=== PATIENT | female | born 1980 | race Caucasian/White ===

== ENCOUNTER 2021-03-19 23:12 | Emergency (ER) | payer OTHER ==
[2021-03-19 23:35] VITALS: TEMP 97.7; BMI 27.7
[2021-03-19] MEDS ORDERED: ACETAMINOPHEN 1000 MG/100 ML BAG IVPB ONE (23:56)
[2021-03-19] MEDS ORDERED: SODIUM CHLORIDE 0.9% 1000 ML INFUS.BAG IV ONE (23:56)
[2021-03-19] MEDS ORDERED: ACETAMINOPHEN INJECTION 100 ML IVPB ONE (23:58)
[2021-03-20 00:38] LABS: BASO % 0.4 % (0-2.0); EOS % 2.3 % (0-4.5); HEMATOCRIT 37.4 % (32.4-45.2); HEMOGLOBIN 12.3 GM/dL (10.7-15.3); LYMPH % 34.7 % (8-40); MCH 28.9 pg (25.7-33.7); MCHC 32.8 g/dl (32.0-36.0); MEAN PLT VOLUME 7.7 fl (7.5-11.1); MONO % 5.9 % (3.8-10.2); NEUT % 56.7 % (42.8-82.8); PLATELET COUNT 361 10^3/uL (134-434); RBC 4.25 M/mm3 (3.60-5.2); RDW 13.9 % (11.6-15.6)
[2021-03-20 01:00] LABS: CALCIUM 8.7 mg/dL (8.5-10.1)
[2021-03-20 01:01] LABS: ALBUMIN 3.8 g/dl (3.4-5.0)
[2021-03-20 01:04] LABS: CREATININE 0.7 mg/dL (0.55-1.3)
[2021-03-20 01:05] LABS: BILIRUBIN,TOTAL 0.6 mg/dL (0.2-1)
[2021-03-20 01:06] LABS: TOT PROT 7.2 g/dl (6.4-8.2)
[2021-03-20] MEDS ORDERED: RHO(D) IMMUNE GLOBULIN 1,500 UNIT DISP.SYRIN IM ONE (01:44)
[2021-03-20] MEDS ORDERED: IBUPROFEN 600 MG TABLET (FP) PO ONE ×2 (04:37)
[2021-03-20 04:45] VITALS: BP 122/81; PULSE 77
== END 2021-03-20 04:57 | disposition home or self-care (01) ==
LOC: JER 23:12
PROC: 3E0333Z Introduction of Anti-inflammatory into Peripheral Vein, Percutaneous Approach (ICD-10-PCS; principal; 2021-03-19)
PROC: 3E033GC Introduction of Other Therapeutic Substance into Peripheral Vein, Percutaneous Approach (ICD-10-PCS; 2021-03-19)
PROC: 3E033GC Introduction of Other Therapeutic Substance into Peripheral Vein, Percutaneous Approach (ICD-10-PCS; 2021-03-19)
PROC: 3E0234Z Introduction of Serum, Toxoid and Vaccine into Muscle, Percutaneous Approach (ICD-10-PCS; 2021-03-19)
DX: O03.39 Incomplete spontaneous abortion with other complications (principal); Z3A.01 Less than 8 weeks gestation of pregnancy
CPT/HCPCS: 76817-TC; 80053; 84702; 85025; 86850; 86870; 86900; 86901; 86902; 86999; 99284-25; J0131; J1561

== ENCOUNTER 2023-07-05 00:17 | Emergency (ER) | payer OTHER ==
[2023-07-05 00:29] VITALS: TEMP 98; BMI 28.0
[2023-07-05] MEDS ORDERED: ACETAMINOPHEN INJECTION 100 ML IVPB ONE (01:31)
[2023-07-05] MEDS ORDERED: FAMOTIDINE 10 MG/ML VIAL IVPB ONE (01:31)
[2023-07-05] MEDS: ACETAMINOPHEN 1000 MG/100 ML BAG IVPB ONE (01:35)
[2023-07-05] MEDS: FAMOTIDINE 20 MG/50 ML IVPB 20 MG/50 ML MG IVPB ONE (01:35)
[2023-07-05 02:09] LABS: BASO % 0.2 % (0-2.0); EOS % 0.7 % (0-4.5); HEMATOCRIT 35.7 % (32.4-45.2); HEMOGLOBIN 12.2 GM/dL (10.7-15.3); LYMPH % 16.7 % (8-40); MCH 30.8 pg (25.7-33.7); MCHC 34.3 g/dl (32.0-36.0); MEAN CELL VOLUME 89.8 fl (80-96); MEAN PLT VOLUME 8.2 fl (7.5-11.1); MONO % 5.8 % (3.8-10.2); NEUT % 76.6 % (42.8-82.8); PLATELET COUNT 304 10^3/uL (134-434); RBC 3.98 M/mm3 (3.60-5.2); RDW 13.4 % (11.6-15.6); WHITE BLOOD COUNT 10.5 K/mm3 (4.0-10.0)
[2023-07-05 02:27] LABS: POTASSIUM 3.9 mmol/L (3.5-5.1)
[2023-07-05 02:30] LABS: ALBUMIN 3.6 g/dl (3.4-5.0); BLOOD UREA NITROGEN 5.1 mg/dL (7-18)
[2023-07-05 02:33] LABS: CREATININE 0.7 mg/dL (0.55-1.3)
[2023-07-05 02:35] LABS: BILIRUBIN,TOTAL 0.4 mg/dL (0.2-1); TOT PROT 6.5 g/dl (6.4-8.2)
[2023-07-05 03:04] LABS: URINE APPEARANCE CLEAR; URINE BILIRUBIN NEGATIVE (NEGATIVE); URINE COLOR DK YELLOW; URINE GLUCOSE (UA) NEGATIVE (NEGATIVE); URINE KETONE 1+ (NEGATIVE); URINE LEUK ESTERASE NEGATIVE (NEGATIVE); URINE NITRITE NEGATIVE (NEGATIVE); URINE PROTEIN TRACE (NEGATIVE)
[2023-07-05 03:06] LABS: CALCIUM 9.4 mg/dL (8.5-10.1)
[2023-07-05 03:44] LABS: HIV INTERPRETATION NEGATIVE (NEGATIVE)
[2023-07-05 04:29] VITALS: BP 114/71; PULSE 61; RESP 15
== END 2023-07-05 04:29 | disposition home or self-care (01) ==
LOC: JER 00:17
PROC: 3E033GC Introduction of Other Therapeutic Substance into Peripheral Vein, Percutaneous Approach (ICD-10-PCS; principal; 2023-07-05)
PROC: 3E033NZ Introduction of Analgesics, Hypnotics, Sedatives into Peripheral Vein, Percutaneous Approach (ICD-10-PCS; 2023-07-05)
DX: R10.13 Epigastric pain (principal); R11.0 Nausea; Z20.822 Contact with and (suspected) exposure to COVID-19
CPT/HCPCS: 0241U-QW; 36415; 76705-TC; 80053; 81003; 84484; 84703; 85025; 87086; 87389; 93005; 93010; 99285-25; J0131